=== PATIENT | male | born 2000 ===

== ENCOUNTER → 2022-04-07 10:43 | Outpatient (CLI) | payer BC, OTHER, SELFPAY ==
--- NOTE | ~2022-04-07 | MR_ITS ---
EXAMINATION: MR femur RT wo con DATE: 04/07/2022 11:28 INDICATION: Right thigh pain after playing baseball 1-2 weeks prior. TECHNIQUE: Magnetic resonance imaging (MRI) of the right thigh was performed without intravenous cont rast. A marker was placed over the region of concern. Sequences included axial, sagittal and coronal T1-weighted FSE and fluid sensitive FSE STIR. The contralateral left thigh is included on the lamb l images. COMPARISON: None. FINDINGS: 7.2 x 5.1 x 2.5 cm lenticular lesion within the proximal right rectus femoris muscle which demonstrat es heterogeneous increased T1 and T2 signal. There is some mild surrounding feathery muscular edema. Otherwise normal and symmetric muscle bulk and signal in the bilateral thighs. Normal bone marrow sig nal throughout. No reactive edema, fracture or pathologic marrow replacing process. No right hip or k nee joint effusion. No pathologically enlarged right pelvic or inguinal lymphadenopathy. IMPRESSION: 1. 7.2 x 5.1 x 2.5 cm lenticular lesion within the proximal right rectus femoris muscle with appearan ce and clinical history most consistent with and hematoma at the site of a partial thickness muscle t ear/moderate grade strain. In the absence of postcontrast imaging. Differential for the T1 hyperinten se lesion based solely on appearance and without accounting for the clinical history would also inclu de a solid fat-containing neoplasm. This possibility could be excluded with either repeat postcontras t MRI or ultrasound. Reviewed, dictated and finalized at location B. IMPRESSION: 1. 7.2 x 5.1 x 2.5 cm lenticular lesion within the proximal right rectus femori s muscle with appearance and clinical history most consistent with and hematoma at the site of a partial thickness muscle tear/moderate grade strain. In the a bsence of postcontrast imaging. Differential for the T1 hyperintense lesion bas ed solely on appearance and without accounting for the clinical history would a lso include a solid fat-containing neoplasm. This possibility could be excluded with either repeat postcontrast MRI or ultrasound.
== END ==
PROVIDERS: PCP Orthopaedic Surgery; Visit Provider Orthopaedic Surgery
DX: M79.651 Pain in right thigh (principal); M79.89 Other specified soft tissue disorders; S76.811A Strain of other specified muscles, fascia and tendons at thigh level, right thigh, initial encounter
CPT/HCPCS: 73718